=== PATIENT | female | born 1940 | race Caucasian/White ===

== ENCOUNTER 2018-01-17 21:01 | Emergency (ER) | payer MEDICARE, BC ==
[2018-01-17 22:07] LABS: #Basophils 0.1 thou/uL (0.0-0.2); #Eosinphils 0.1 thou/uL (0.0-0.7); #Lymphocytes 1.5 thou/uL (1.20-3.40); #Monocytes 0.7 thou/uL (0.11-0.59); #Neutrophils 8.8 thou/uL (1.40-6.50); %Basophils 0.7 % (0.0-1.0); %Eosinophils 0.9 % (0.0-10.0); %Lymphocytes 13.5 % (21.0-51.0); %Monocytes 6.6 % (0.0-10.0); %Neutrophils 78.4 % (42.0-75.0); Hemoglobin 13.5 g/dL (12.0-16.0); Mean Corpuscular HGB CONC 34.1 g/dL (32.0-36.0); Mean Corpuscular Hemoglobin 28.2 pg (27.0-31.0); Mean Corpuscular Volume 82.8 fl (81.0-99.0); Mean Platelet Volume 8.8 fL (7.4-10.4); Platelet Count 207 thou/uL (130-400); RBC Distribution Width 12.2 % (11.5-14.5); Red Blood Cell (RBC) Count 4.79 mill/uL (4.20-5.40); White Blood Cell (WBC) Count 11.2 thou/uL (4.8-10.8)
[2018-01-17] MEDS ORDERED: Morphine 10 MG/ML VIAL ONE (22:07)
[2018-01-17] MEDS ORDERED: Naproxen 500 MG TAB ONE (22:07)
[2018-01-17 22:14] LABS: PTT 27.6 SEC (22.9-36.1); Prothrombin Time 13.7 SEC (12.0-14.7)
--- NOTE | 2018-01-17 22:15 | RAD ---
SINGLE VIEW OF THE CHEST: 01/17/18 COMPARISON: 10/05/14 HISTORY: Fever. FINDINGS: Single view of the chest shows a normal sized cardiomediastinal silhouette. There is no evidence of c onsolidation, mass, or pleural effusion. The bones are unremarkable. IMPRESSION: No evidence of acute cardiopulmonary disease. POS: [facility]
--- NOTE | 2018-01-17 22:25 | CT ---
CT OF THE BRAIN WITHOUT CONTRAST: 01/17/18 COMPARISON: MRI brain 10/21/16. HISTORY: Headache. TECHNIQUE: Multiple contiguous axial images were obtained in a CT of the brain without contrast. FINDINGS: There is scattered hypodensities in subcortical and periventricular white matter, likely secondary to small vessel ischemic disease. There is a bony excrescence along the right parietal calvarium which likely represents a calcified meningioma. There is no evidence of hydrocephalus, intracranial hemorrh age or extra-axial fluid collection. The visualized paranasal sinuses and mastoid air cells are well aerated. IMPRESSION: 1. No evidence of acute intracranial abnormality. 2. Right parietal calcified meningioma. POS: [facility]
[2018-01-17 22:26] LABS: ALT (SGPT) 17 U/L (8-55); AST (SGOT) 20 U/L (5-34); Albumin 3.9 g/dL (3.4-4.8); Alkaline Phosphatase 116 U/L (40-150); Anion Gap 15 mmol/L (10-20); BUN (Urea Nitrogen) 16 mg/dL (9.8-20.1); Bilirubin, Total 0.5 mg/dL (0.2-1.2); CK (CPK) 199 U/L (29-168); Calc. Creatinine Clearance 0 mL/min (70-130); Chloride 108 mmol/L (98-107); Estimated GFR-MDRD 78; Glucose 89 mg/dL (83-110); Potassium 4.1 mmol/L (3.5-5.1); Protein, Total 6.9 g/dL (6.0-8.3); Sodium 143 mmol/L (136-145)
--- NOTE | 2018-01-17 22:28 | CT ---
CT CERVICAL SPINE WITHOUT CONTRAST: 01/17/18 COMPARISON: None. HISTORY: Neck pain and headache. TECHNIQUE: Multiple contiguous axial images were obtained in a CT of the cervical spine without contrast. Sagittal and coronal reformats were performed. FINDINGS: The patient is status post fusion of C4 through C6. No perihardware lucency is seen. The vertebral aden dies demonstrate normal height without fracture or subluxation. No prevertebral soft tissue swelling is seen. The posterior facets are well aligned. Normal alignment of the skull base with the cervical spine is seen. IMPRESSION: Postsurgical and degenerative changes of the cervical spine without acute osseous abnormality. POS: [facility]
[2018-01-17 22:29] LABS: Carbon Dioxide 24 mmol/L (23-31)
[2018-01-17 22:33] LABS: Troponin I 0.023 ng/mL (< 0.028)
== END 2018-01-18 00:05 | disposition home or self-care (01) ==
LOC: MADERS 21:01
DX: Z77.098 Contact with and (suspected) exposure to other hazardous, chiefly nonmedicinal, chemicals (principal); I10 Essential (primary) hypertension; Z79.899 Other long term (current) drug therapy
CPT/HCPCS: 70450; 71045; 72125; 80053; 82553; 83880; 84484; 85025; 85610; 85730; 93005; 94760; 96374; J2270

== ENCOUNTER 2018-07-16 12:40 | Emergency (ER) | payer MEDICARE, BC ==
[2018-07-16 13:05] LABS: #Basophils 0.1 thou/uL (0.0-0.2); #Eosinphils 0.1 thou/uL (0.0-0.7); #Lymphocytes 1.4 thou/uL (1.20-3.40); #Monocytes 0.5 thou/uL (0.11-0.59); #Neutrophils 6.8 thou/uL (1.40-6.50); %Basophils 1.2 % (0.0-1.0); %Eosinophils 1.5 % (0.0-10.0); %Lymphocytes 15.4 % (21.0-51.0); %Monocytes 5.7 % (0.0-10.0); %Neutrophils 76.2 % (42.0-75.0); Hemoglobin 13.1 g/dL (12.0-16.0); Mean Corpuscular HGB CONC 32.3 g/dL (32.0-36.0); Mean Corpuscular Hemoglobin 27.2 pg (27.0-31.0); Mean Corpuscular Volume 84.2 fL (78.0-98.0); Mean Platelet Volume 9.6 fL (7.4-10.4); Platelet Count 259 thou/uL (130-400); Red Blood Cell (RBC) Count 4.82 mill/uL (4.20-5.40); White Blood Cell (WBC) Count 8.9 thou/uL (4.8-10.8)
[2018-07-16 13:08] LABS: INR-International Normal Ratio 1.1; PTT 29.7 SEC (22.9-36.1); Prothrombin Time 13.9 SEC (12.0-14.7)
[2018-07-16] MEDS ORDERED: hydrALAZINE 20 MG/ML VIAL ONE (13:13)
[2018-07-16 13:18] LABS: ALT (SGPT) 14 U/L (8-55); AST (SGOT) 17 U/L (5-34); Albumin 3.9 g/dL (3.4-4.8); Alkaline Phosphatase 104 U/L (40-150); Anion Gap 15 mmol/L (10-20); BUN (Urea Nitrogen) 20 mg/dL (9.8-20.1); Bilirubin, Total 0.7 mg/dL (0.2-1.2); Calc. Creatinine Clearance 0 mL/min (70-130); Calcium 9.5 mg/dL (7.8-10.44); Carbon Dioxide 23 mmol/L (23-31); Chloride 105 mmol/L (98-107); Estimated GFR-MDRD 70; Glucose 124 mg/dL (83-110); Potassium 3.9 mmol/L (3.5-5.1); Protein, Total 6.9 g/dL (6.0-8.3); Sodium 139 mmol/L (136-145)
[2018-07-16 13:21] LABS: Troponin I Less than 0.010 ng/mL (< 0.028)
[2018-07-16 13:24] LABS: CKMB 2.6 ng/mL (0-6.6)
--- NOTE | 2018-07-16 13:48 | CT ---
CT BRAIN NONCONTRAST: DATE: 07/16/2018 TIME: 1:12 p.m. HISTORY: A 78-year-old female with headache and dysarthria. FINDINGS: There is no midline shift or any other mass effect. There is no evidence of acute intracranial hemor rhage, large cortical infarct, obstructive hydrocephalus, or extraaxial fluid collection. The calvar ium is intact. There is an approximately 1.3 x 1.3 cm extraaxial calcification with a broad base aga inst the right parietal bone dural surface, mildly displacing adjacent right upper gyri. There is no interval change overall since 01/17/2018. IMPRESSION: 1. No acute intracranial findings. 2. Incidental finding of an approximately 1.3 cm right parietal small meningioma. jnr POS: [facility]
[2018-07-16] MEDS ORDERED: Nitroglycerin 2% Ointment 1 INCH/1 GM Packet ONE (14:00)
[2018-07-16] MEDS ORDERED: Morphine 4 MG/ML VIAL ONE (14:15)
[2018-07-16] MEDS ORDERED: Ondansetron HCl/PF 4 MG/2 ML Vial ONE (14:30)
== END 2018-07-16 14:39 | disposition short-term general hospital (02) ==
LOC: MADERS 12:40
DX: I16.0 Hypertensive urgency (principal); I10 Essential (primary) hypertension
CPT/HCPCS: 36416; 70450; 80053; 82553; 84484; 85025; 85610; 85730; 93005; 94760; 96374; 96375; J0360; J2270; J2405

== ENCOUNTER 2020-01-27 13:05 | Emergency (ER) | payer MEDICARE, BC ==
--- NOTE | 2020-01-27 13:41 | RAD ---
Exam:3 views left foot HISTORY: Pain. Injury. Patient dropped object on her foot. COMPARISON: None FINDINGS: Lisfranc alignment is maintained. No fracture. Mild degenerative change in the first metata rsophalangeal joint space. There is evidence of dorsal soft tissue swelling. IMPRESSION: Dorsal soft tissue swelling, without evidence of fracture
== END 2020-01-27 14:10 | disposition home or self-care (01) ==
LOC: MADERS 13:05
DX: L03.116 Cellulitis of left lower limb (principal); I10 Essential (primary) hypertension; G89.29 Other chronic pain; Z79.82 Long term (current) use of aspirin; Z79.899 Other long term (current) drug therapy

== ENCOUNTER 2020-06-07 18:46 | Emergency (ER) | payer MEDICARE, BC ==
--- NOTE | 2020-06-07 19:34 | CT ---
Exam: Maxillofacial CT without contrast HISTORY: Hit right eye on an object 4 days ago. Comparison: None FINDINGS: Visualized brain parenchyma does not demonstrate posttraumatic change Bilateral ocular lens implants are appropriately located. Both globes are intact. Retrobulbar fat is preserved. Symmetric attenuation of the optic nerves and ocular rectus muscles. No posttraumatic change in the facial soft tissues Adequate aeration of the paranasal sinuses and mastoid air cells Osseous margins of the orbits, sinuses, nasal bones are intact Coronal reformatted images demonstrate patent bilateral ostiomeatal complexes. Leftward deviation of nasal septum. Jennifer bullosa of the right superior turbinate Maxilla and mandible are intact. IMPRESSION: 1. No posttraumatic changes in the face. 2. Bilateral ocular lens implants are appropriately positioned. Symmetric attenuation of the retrobul bar fat. Transcribed Date/Time: 06/07/2020 8:04 PM
== END 2020-06-07 20:06 | disposition home or self-care (01) ==
LOC: MADERS 18:46
DX: S00.83XA Contusion of other part of head, initial encounter (principal); W22.8XXA Striking against or struck by other objects, initial encounter; E78.5 Hyperlipidemia, unspecified; I10 Essential (primary) hypertension
CPT/HCPCS: 70486

== ENCOUNTER 2024-04-30 14:18 | Emergency (ER) | payer MEDICARE, BC ==
[2024-04-30 14:54] LABS: Bilirubin Negative (Negative); Blood, Urine Small (Negative); Clarity Clear (Clear); Glucose, Urine (Dipstick) Negative (Negative); Ketone, Urine Negative (Negative); Leukocyte Negative (Negative); Nitrite Negative (Negative); Protein, Urine (Dipstick) Negative (Neg-Trace); Specific Gravity, Urine 1.025 (1.005-1.030); pH, Urine 6.5 (5.0-9.0)
[2024-04-30 15:04] LABS: Bacteria/HPF Rare-Few HPF (None Seen); CAUTI Indications for Culture Pelvic or flank pain; Mucous/LPF 2+ LPF (<2+); Squamous Epithelial 0-3 HPF (0-3); Urine Culture Reflex No No
== END 2024-04-30 16:43 | disposition home or self-care (01) ==
LOC: MADERS 14:18
DX: N39.0 Urinary tract infection, site not specified (principal); M54.50 Low back pain, unspecified; M54.6 Pain in thoracic spine; E78.5 Hyperlipidemia, unspecified; I10 Essential (primary) hypertension; Z79.899 Other long term (current) drug therapy
CPT/HCPCS: 71046; 72040; 72072; 72100; 72170; 81001; 87086